=== PATIENT | male | born 1985 | race Caucasian/White ===

== ENCOUNTER 2020-01-20 10:08 | Emergency (ER) | payer SELFPAY ==
[~2020-01-20] VITALS: Ht 167.6 cm; Wt 57.2 kg
[2020-01-20 10:10] VITALS: BP 133/86
--- NOTE | 2020-01-20 10:15 | NUR ---
PT BIB [facility] TO TENT
--- NOTE | 2020-01-20 10:15 | NUR ---
DR. ESPANA OUTSIDE IN TENT EXAMINING PT.
--- NOTE | 2020-01-20 10:21 | NUR ---
BIBA WITH C/O GENERALIZED ITCHINESS X2 MONTHS. TRACK-LIKE RASH NOTED TO BLE/BUE. APPEARS REDDENED AND CRUSTED WITH DRY BLOOD. PT SEEN & TREATED IN ED TENT BY DR ESPANA.
[2020-01-20 10:44] VITALS: BP 133/86
--- NOTE | 2020-01-20 10:45 | NUR ---
Patient discharged with v/s stable. Written and verbal after care instructions given and explained, pt a & o x4 & refused all d/c paperwork and RX for Permethrin topical cream. Patient advised to follow up with PMD. Homeless resource packet, rx discount card were offered but refused. Lunch was provided to pt upon d/c.
== END 2020-01-20 10:45 | disposition home or self-care (01) ==
LOC: MED 10:08
DX: B86 Scabies (principal); Z59.0 Homelessness
CPT/HCPCS: 99282; 99283